=== PATIENT | male | born 1985 | race Caucasian/White ===

== ENCOUNTER 2021-07-12 07:23 | Emergency (ER) | payer MEDICAID ==
[~2021-07-12] VITALS: Ht 175.3 cm; Wt 89.6 kg
[~2021-07-12 07:23] MED LIST: IBUP-1984 PO; ORPH100T2 PO
[2021-07-12 07:49] VITALS: BP 138/91
[2021-07-12] MEDS ORDERED: PENI250T2 PO (08:08)
[2021-07-12] MEDS ORDERED: NAPR-56 PO (08:08)
[2021-07-12] MEDS ORDERED: HYDR-3965 PO (08:08)
== END 2021-07-12 08:31 | disposition home or self-care (01) ==
LOC: ER 07:24
DX: K04.7 Periapical abscess without sinus (principal); R22.0 Localized swelling, mass and lump, head; Z88.0 Allergy status to penicillin; Z79.899 Other long term (current) drug therapy; Z72.89 Other problems related to lifestyle
CPT/HCPCS: 99283

== ENCOUNTER 2022-10-22 19:56 | Emergency (ER) | payer MEDICAID ==
[~2022-10-22] VITALS: Ht 170.2 cm; Wt 95.0 kg
[2022-10-22 20:06] VITALS: BP 150/96
[2022-10-22] MEDS ORDERED: ibuprofen tablet 400 MG TABLET PO ONE (21:20)
[2022-10-22] MEDS ORDERED: clindamycin 150mg capsule PO ONE (21:20)
[2022-10-22] MEDS ORDERED: HYDROcodone/acetaminophen 10/325mg tab PO ONE (21:20)
[2022-10-22] MEDS ORDERED: CLIN-97 PO (21:24)
[2022-10-22] MEDS ORDERED: IBUP-1986 PO (21:24)
== END 2022-10-22 21:44 | disposition home or self-care (01) ==
LOC: ER 19:56
DX: K04.7 Periapical abscess without sinus (principal)
CPT/HCPCS: 99284

== ENCOUNTER 2022-10-25 23:13 | Emergency (ER) | payer MEDICAID ==
[~2022-10-25] VITALS: Ht 175.3 cm; Wt 85.0 kg
[~2022-10-25 23:13] MED LIST changes: +CLIN-97 PO; +IBUP-1986 PO
[2022-10-25 23:28] VITALS: BP 133/87
[2022-10-25] MEDS ORDERED: AMOX-117 PO (23:50)
[2022-10-25] MEDS ORDERED: amox tr/potassium clavulanate 875/125mg TAB PO ONE (23:55)
[2022-10-25] MEDS ORDERED: HYDROcodone/acetaminophen 10/325mg tab PO ONE (23:55)
[2022-10-26] MEDS ORDERED: ketorolac trometh. 30mg/ml inj. IM STA (00:12)
== END 2022-10-26 00:35 | disposition home or self-care (01) ==
LOC: ER 23:13
DX: K04.7 Periapical abscess without sinus (principal); Z72.89 Other problems related to lifestyle; Z79.899 Other long term (current) drug therapy
CPT/HCPCS: 41800; 96372; 99284; J1885

== ENCOUNTER 2023-02-07 19:33 | Emergency (ER) | payer MEDICAID ==
[~2023-02-07] VITALS: Ht 175.3 cm; Wt 93.6 kg
[~2023-02-07 19:33] MED LIST changes: -ORPH100T2 PO; +ORPH100T4 PO
[2023-02-07 19:38] VITALS: BP 157/102
[2023-02-07] MEDS ORDERED: sulfamethoxazole/trimethoprim DS (800/160mg) tablet PO STA (21:16)
[2023-02-07] MEDS ORDERED: SULF1TAB48 PO (21:27)
== END 2023-02-07 21:35 | disposition home or self-care (01) ==
LOC: ER 19:33
DX: L02.01 Cutaneous abscess of face (principal); L03.211 Cellulitis of face; F17.210 Nicotine dependence, cigarettes, uncomplicated; Z72.89 Other problems related to lifestyle; Z79.899 Other long term (current) drug therapy
CPT/HCPCS: 10060; 99283

== ENCOUNTER 2023-07-22 15:58 | Emergency (ER) | payer MEDICAID ==
[~2023-07-22] VITALS: Ht 172.7 cm; Wt 90.9 kg
[2023-07-22 16:29] VITALS: TEMP 98.4
[2023-07-22] MEDS ORDERED: LIDOcaine 1% 30ml preserv. free vial IJ STA (17:05)
[2023-07-22 17:23] LABS: BASOPHILS # (AUTO) 0.1 X10'3 (0-0.2); BASOPHILS % (AUTO) 0.6 % (0-1); EOSINOPHILS # (AUTO) 0.4 X10'3 (0-0.9); EOSINOPHILS % (AUTO) 2.8 % (0-6); HEMATOCRIT 46.2 % (42.0-52.0); HEMOGLOBIN 15.7 g/dl (14.0-17.9); LYMPHOCYTES # (AUTO) 4.5 X10'3 (1.1-4.8); LYMPHOCYTES % (AUTO) 29.4 % (21-51); MEAN CORPUSCULAR HEMOGLOBIN 32.7 PG (27.0-31.0); MEAN CORPUSCULAR VOLUME 96.1 FL (78-98); MONOCYTES # (AUTO) 0.9 X10'3 (0-0.9); NEUTROPHILS # (AUTO) 9.4 X10'3 (1.8-7.7); NEUTROPHILS % (AUTO) 61.2 % (42-75); PLATELET COUNT 263 X10'3 (140-440); RED CELL DISTRIBUTION WIDTH 13.1 % (11.5-14.5); WHITE BLOOD COUNT 15.4 X10'3 (4.5-11.0)
[2023-07-22 17:34] LABS: APTT 26 SECONDS (22-32); PROTHROMBIN TIME 10.4 SECONDS (9.0-12.0)
[2023-07-22 17:37] LABS: ALANINE AMINOTRANSFERASE 36 U/L (12-78); ALBUMIN 4.1 G/DL (3.4-5.0); ALBUMIN/GLOBULIN RATIO 1.2 (1.1-1.5); ALKALINE PHOSPHATASE 63 IU/L (46-116); ANION GAP 11 (8-16); ASPARTATE AMINO TRANSFERASE 27 U/L (10-37); BILIRUBIN,TOTAL 0.3 MG/DL (0.1-1.0); BLOOD UREA NITROGEN 11 MG/DL (7-18); BUN/CREATININE RATIO 9.8 (10.0-20.0); CALCIUM 8.4 MG/DL (8.5-10.1); CHLORIDE 98 MMOL/L (99-107); CREATININE 1.12 MG/DL (0.60-1.10); GLUCOSE 92 MG/DL (70-104); POTASSIUM 3.6 MMOL/L (3.5-5.1); SODIUM 134 MMOL/L (135-145); TOTAL CARBON DIOXIDE 25.4 MMOL/L (24-32); TOTAL PROTEIN 7.4 G/DL (6.4-8.2); eCRCL 87 ML/MIN; eGFR 74 ML/MIN
[2023-07-22] MEDS ORDERED: CLIN-97 PO (17:58)
[2023-07-22 18:27] VITALS: BP 137/88; PULSE 78; RESP 18; O2SAT 100
--- NOTE | 2023-07-22 18:27 | NUR ---
PT WALKED OUT OF ER ON HIS SPLINT WITH OUT USING CRUTCHES
== END 2023-07-22 18:28 | disposition home or self-care (01) ==
LOC: ER 15:59
DX: S82.52XA Displaced fracture of medial malleolus of left tibia, initial encounter for closed fracture (principal); S91.012A Laceration without foreign body, left ankle, initial encounter; S51.012A Laceration without foreign body of left elbow, initial encounter; I10 Essential (primary) hypertension; Z79.2 Long term (current) use of antibiotics; Z79.899 Other long term (current) drug therapy; Z72.89 Other problems related to lifestyle; V86.56XA Driver of dirt bike or motor/cross bike injured in nontraffic accident, initial encounter; Y93.89 Activity, other specified; Y92.89 Other specified places as the place of occurrence of the external cause; Y99.8 Other external cause status
CPT/HCPCS: 12032; 12042; 36415; 70450; 71045; 73090; 73610; 80053; 85025; 85610; 85730; 99285; A6222; J7030; A6258; A6446; A6449

== ENCOUNTER 2024-09-15 12:21 | Emergency (ER) | payer MEDICAID, OTHER | END 2024-09-15 14:40 | disposition left against medical advice (07) | LOC: ER 12:22 | DX: Z53.21 Procedure and treatment not carried out due to patient leaving prior to being seen by health care provider (principal) ==